=== PATIENT | male | born 1965 | race Caucasian/White ===

== ENCOUNTER 2016-08-14 07:32 | Emergency (ER) | payer BC ==
[~2016-08-14] VITALS: Ht 177.8 cm; Wt 109.9 kg
[2016-08-14 07:34] VITALS: TEMP 36.5; Ht 177.8 cm; Wt 109.9 kg
--- NOTE | 2016-08-14 08:11 | DIAGNOSTIC IMAGING REPORT ---
RIGHT SHOULDER 3 VIEWS HISTORY: Right shoulder pain. Fall. COMPARISON: None. FINDINGS: No acute fracture or dislocation within the right shoulder. Old, healed distal right clavicle fracture. There is 5 mm of superior displacement the distal clavicle in relation to the acromion. This is consistent within age-indeterminate grade II acromioclavicular separation. 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 Soft tissues are unremarkable. No radiopaque foreign bodies. IMPRESSION: 1. No acute fracture or dislocation within the right shoulder. 2. 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 3. Old, healed distal right clavicle fracture. 4. Age-indeterminate grade II acromioclavicular separation. Electronically signed by: Mitch Garvin M.D. 08/14/2016 8:09 AM Dictated Date/Time: 08/14/2016 8:07 AM
[2016-08-14] MEDS ORDERED: HYDR-5688 PO (08:51)
--- NOTE | 2016-08-14 08:51 | EMERGENCY ROOM VISIT NOTE ---
ED Visit Note First contact with patient: 07:38 CHIEF COMPLAINT: Right shoulder injury yesterday HISTORY OF PRESENT ILLNESS: Patient is a [id number] 51-year-old white male who presents to the emergency department for evaluation of right shoulder pain after an injury yesterday. He was playing football, and fell landing directly on the right shoulder. He had immediate onset of pain. He has a history of dislocations which he reduces on his own, his last was about 10 years ago. He has never been seen by orthopedics for this problem. He states they did not feel like his shoulder dislocated and it was more painful than usual. He did not take any medications, nor perform any interventions for his symptoms yesterday. He now presents for evaluation. He complains of pain in the top of the shoulder that is worse with movement. He denies any numbness, tingling or weakness radiating into the left upper extremity. He rates his discomfort a 10/10. REVIEW OF SYSTEMS: Review of systems as per HPI. All other systems reviewed were negative. At least 6 systems reviewed. PMH: Electronic medical records are reviewed and summarized as above/below. See Problem List. SOCIAL HISTORY: Patient lives at home near [place]. He is here locally for the [employer] game. He does not smoke PHYSICAL EXAM: Vital Signs: Reviewed nurse's notes. CONSTITUTIONAL: Patient is a well-appearing 51-year-old white male who is awake and alert and in no acute distress. MUSCULOSKELETAL: Examination of the right shoulder show swelling and prominence of the clavicle at the acromioclavicular joint. The patient has discomfort to palpation here. He has no discomfort over the proximal humerus, but does have some discomfort with passive internal and external rotation, which appears full. Elbow and wrist are normal to inspection and range of motion there is full. The right upper extremity is neurovascularly intact. EMERGENCY DEPARTMENT COURSE: X-rays of the right shoulder were obtained. X- rays of the right shoulder do not show any fracture or dislocation. Acromioclavicular separation was noted. The patient was fitted with an arm sling. Conservative care measures were discussed. He was given Pledger for pain , and advised to follow-up with orthopedics when he returns home for further care and management of his injury. Differential diagnoses entertained included fracture of the clavicle or proximal humerus, dislocation, subluxation, shoulder, among others. RIGHT SHOULDER 3 VIEWS HISTORY: Right shoulder pain. Fall. COMPARISON: None. FINDINGS: No acute fracture or dislocation within the right shoulder. Old, healed distal right clavicle fracture. There is 5 mm of superior displacement the distal clavicle in relation to the acromion. This is consistent within age-indeterminate grade II acromioclavicular separation. 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 Soft tissues are unremarkable. No radiopaque foreign bodies. IMPRESSION: 1. No acute fracture or dislocation within the right shoulder. 2. 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 3. Old, healed distal right clavicle fracture. 4. Age-indeterminate grade II acromioclavicular separation. Current/Historical Medications Scheduled PRN Hydrocodone/Acetaminophen 5MG/325MG (Pledger 5MG/325MG), 1-2 TABLETS PO Q4 PRN for Pain Allergies Coded Allergies: No Known Allergies (Unverified , 08/14/16) Vital Signs Date Time Temp Pulse Resp B/P Pulse Ox O2 Delivery O2 Flow Rate FiO2 08/14/16 09:03 94 16 182/112 98 08/14/16 07:34 36.5 97 16 188/100 96 Room Air Departure Information Impression Primary Impression: Acromioclavicular separation Prescriptions Hydrocodone/Acetaminophen 5MG/325MG (Pledger 5MG/325MG) Tab 1-2 TABLETS PO Q4 Y for Pain, #20 TAB For Initial Treatment Prov: Mable De PA 08/14/16 Referrals No Doctor, Assigned (PCP) Patient Instructions [facility] Additional Instructions Hydrocodone/Acetaminophen (Pledger) 5/325 mg: Take 1-2 pills every four hours for breakthrough pain. Avoid alcohol, operating machinery or dangerous equipment, working on ladders or roofs, DRIVING, or situations where being under the influence may be dangerous. It is recommended to use an cnzf-udk-bssabtz stool softener such as Colace, 100mg twice daily while taking this medication to avoid constipation. Ibuprofen(Motrin, Advil) may be used for fever or pain. Use 600mg every six hours as needed. Take with food. Avoid using more than 2400mg in a 24 hour period. Do not use 2400mg per day for more than three consecutive days without physician direction. Prolonged inappropriate use can lead to stomach upset or ulcers. This medication can be taken if you need to drive, work, or perform activities which may be dangerous when taking narcotic pain medication. (AND/OR) Acetaminophen(Tylenol) may be used for fever or pain. Use 1000mg every six hours as needed. Avoid using more than 3000mg in a 24 hour period. This medication can be taken if you need to drive, work, or perform activities which may be dangerous when taking narcotic pain medication. Ice compresses for 20 minutes at a time four times daily for 2-3 days. Use the sling as instructed. Remove your arm from the sling 4-6 times a day and move all the joints around to keep them loose. Rest your injury. Continue current medications. Return to the ER immediately for any numbness, tingling, severe pain, extreme swelling in the extremity or as needed. Follow-up with orthopedic surgery when you return home for further care and management of your injury.
[2016-08-14 09:03] VITALS: BP 182/112; PULSE 94; O2SAT 98
== END 2016-08-14 09:04 | disposition home or self-care (01) ==
LOC: C.EDB 07:33
DX: S43.101A Unspecified dislocation of right acromioclavicular joint, initial encounter (principal); W19.XXXA Unspecified fall, initial encounter; Y93.61 Activity, american tackle football